=== PATIENT | male | born 1965 ===

== ENCOUNTER 2019-07-27 14:25 | Emergency (ER) | payer SELFPAY ==
[2019-07-27] MEDS ORDERED: LIDOCAINE 1% MPF 5 ML VIAL ONE (15:39)
[2019-07-27] MEDS ORDERED: BUPIVACAINE 0.5% PF 10 ML VIAL ONE (15:39)
[2019-07-27] MEDS ORDERED: TETANUS & DIPHTHERIA TOX,ADULT 0.5 ML VIAL ONE (15:47)
[2019-07-27] MEDS ORDERED: LIDOCAINE 1% MPF 30 ML VIAL ONE (15:52)
--- NOTE | 2019-07-27 16:37 | ER ---
Nurse's Notes [facility] Name: Indra Bauman Age: 53 yrs Sex: Male : 1965 Arrival Date: 07/27/2019 Time: 14:27 Bed 16 Private MD: Diagnosis: Puncture wound with foreign body of left thumb without damage to nail Presentation: 07/26 14:58 Chief complaint: Patient states: Fish hook stuck on the L thumb. Coronavirus screen: ca1 Proceed with normal triage. Patient denies a cough. Patient denies shortness of breath or difficulty breathing. Patient denies measured and/or subjective temperature greater than 100.4F prior to today's visit. Patient denies travel on a cruise ship or to a country the [facility] currently lists as an affected area. Patient denies contact with known and/or suspected case of COVID-19. Ebola Screen: Patient negative for fever greater than or equal to 101.5 degrees Fahrenheit, and additional compatible Ebola Virus Disease symptoms Patient denies exposure to infectious person. Patient denies travel to an Ebola-affected area in the 21 days before illness onset. No symptoms or risks identified at this time. Initial Sepsis Screen: Does the patient meet any 2 criteria? No. Patient's initial sepsis screen is negative. Does the patient have a suspected source of infection? No. Patient's initial sepsis screen is negative. Risk Assessment: Do you want to hurt yourself or someone else? Patient reports no desire to harm self or others. Onset of symptoms was July 27, 2019. 14:58 Method Of Arrival: Ambulatory ca1 14:58 Acuity: MARY ELLEN 4 ca1 Triage Assessment: 18:57 Injury Description: Puncture sustained to left thumb. ll1 18:57 General: Appears uncomfortable, Behavior is calm, cooperative, appropriate for age. ll1 Historical: - Allergies: 15:01 No Known Allergies; ca1 - Home Meds: 15:01 None [Active]; ca1 - PMHx: 15:01 None; ca1 - PSHx: 15:01 None; ca1 - Immunization history:: Adult Immunizations up to date, Last tetanus immunization: < 5 years ago. - Social history:: Smoking status: Patient denies any tobacco usage or history of. Screenin:56 Abuse screen: Denies threats or abuse. Nutritional screening: No deficits noted. ll1 Tuberculosis screening: No symptoms or risk factors identified. Fall Risk None identified. Total Rios Fall Scale indicates No Risk (0-24 pts). Assessment: 15:50 General: Appears uncomfortable, Behavior is calm, cooperative. Pain: Complains of pain ll1 in left thumb Pain currently is 6 out of 10 on a pain scale. Quality of pain is described as aching. Neuro: No deficits noted. Cardiovascular: No deficits noted. Respiratory: No deficits noted. Derm: Fish hook danielito embedded in left thumb Reports foreign body (fish hook) to left thumb, no active bleeding. Musculoskeletal: Reports pain in left thumb. 17:00 Reassessment: No changes from previously documented assessment. Patient and/or family ll1 updated on plan of care and expected duration. Pain level reassessed. Patient is alert, oriented x 3, equal unlabored respirations, skin warm/dry/pink. Vital Signs: 14:58 BP 115 / 97; Pulse 109; Resp 16 S; Temp 97.7(TE); Pulse Ox 97% on R/A; Weight 74.84 kg ca1 (R); Height 5 ft. 11 in. (180.34 cm) (R); Pain 7/10; 14:58 Body Mass Index 23.01 (74.84 kg, 180.34 cm) ca1 ED Course: 14:27 Patient arrived in ED. bp1 14:58 Arm band placed on right wrist. ca1 15:01 Triage completed. ca1 15:18 Paul Stacy PA is PHCP. cp 15:19 Ketan Silva MD is Attending Physician. cp 15:34 Bk Guzman RN is Primary Nurse. ll1 16:21 Left thumb soaking in betadine/saline solution, tolerated well. Fish hook danielito removed ll1 by ROHAN Gtz. 18:56 Patient has correct armband on for positive identification. Bed in low position. Call ll1 light in reach. Side rails up X 1. 19:00 Triple antibiotic applied to left thumb, bandaid applied. Patient did not have IV ll1 access during this emergency room visit. 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 Exp: ll1 04/27/2021. Lot #: [id number]. } Route: IM; Site: right deltoid; 15:56 Drug: Marcaine (0.5 %) 10 ml Volume: 10 ml; Route: Infiltration; ll1 15:57 Drug: Lidocaine (1 %) 10 ml Volume: 20 ml; Route: Infiltration; ll1 16:57 Drug: Doxycycline 100 mg Route: PO; ll1 Outcome: 16:36 Discharge ordered by . cp 16:58 Patient left the ED. ll1 16:58 Discharged to home ambulatory. ll1 16:58 Condition: stable 17:00 Discharge instructions given to patient, Instructed on discharge instructions, follow ll1 up and referral plans. medication usage, wound care, Demonstrated understanding of instructions, follow-up care, medications, wound care, Prescriptions given X 2. Signatures: Paul Stacy PA PA cp Acob, Cheryl, RN RN ca1 Bk Guzman RN RN [address] [facility] Corrections: (The following items were deleted from the chart) 15:02 14:58 Pulse 109bpm; Resp 16bpm; Spontaneous; Pulse Ox 97% RA; Temp 97.7F Temporal; ca1 74.84 kg Reported; Height 5 ft. 11 in. Reported; BMI: 23.0; Pain 7/10; ca1
--- NOTE | 2019-07-27 16:37 | EDPHYS ---
Physician Documentation [facility] Name: Indra Bauman Age: 53 yrs Sex: Male : 1965 Arrival Date: 07/27/2019 Time: 14:27 Bed 16 Private MD: ED Physician Ketan Silva HPI: 07/26 16:23 This 53 yrs old Male presents to ER via Ambulatory with complaints of Hand Injury. cp 16:25 The patient or guardian reports a puncture wound, fish hook. The complaints affect the cp hutchins side distal phalanx left thumb. 16:25 Context: resulted from fishing. Onset: The symptoms/episode began/occurred today. cp Associated signs and symptoms: Pertinent negatives: cyanosis distally, numbness distally. Historical: - Allergies: 15:01 No Known Allergies; ca1 - Home Meds: 15:01 None [Active]; ca1 - PMHx: 15:01 None; ca1 - PSHx: 15:01 None; ca1 - Immunization history:: Adult Immunizations up to date, Last tetanus immunization: < 5 years ago. - Social history:: Smoking status: Patient denies any tobacco usage or history of. ROS: 16:30 Constitutional: Negative for body aches, chills, fever. cp 16:30 Respiratory: Negative for cough, shortness of breath, wheezing. 16:30 Abdomen/GI: Negative for abdominal pain, nausea, vomiting, and diarrhea. 16:30 Skin: Positive for puncture, of the distal phalanx hutchins side left thumb, embedded fish hook. 16:30 Neuro: Negative for numbness. 16:30 All other systems are negative. Exam: 16:31 Constitutional: The patient appears in no acute distress, alert, awake, well developed, cp well nourished. 16:31 Cardiovascular: Rate: tachycardic. 16:31 Respiratory: the patient does not display signs of respiratory distress, Respirations: normal. 16:31 Musculoskeletal/extremity: ROM: full active range of motion, in the left thumb, Perfusion: the extremity is normally perfused throughout, Sensation intact. 16:31 Skin: injury, that can be described as foreign body containing, without bleeding, puncture(s), that are deep, of the hutchins side distal phalanx left thumb, embedded fish hook. Vital Signs: 14:58 BP 115 / 97; Pulse 109; Resp 16 S; Temp 97.7(TE); Pulse Ox 97% on R/A; Weight 74.84 kg ca1 (R); Height 5 ft. 11 in. (180.34 cm) (R); Pain 7/10; 14:58 Body Mass Index 23.01 (74.84 kg, 180.34 cm) ca1 Procedures: 16:35 Foreign Body Removal: a fishhook, from the hutchins side distal phalanx left thumb, by cp using a hemostat, The patient tolerated the removal well, digital block performed with 6 ccs of 50/50 mixture 1% lidocaine w/o epi and 0.5% Marcaine. MDM: 15:31 Patient medically screened. cp 16:00 Differential diagnosis: dislocation, open fracture, contusion. cp 16:33 Data reviewed: vital signs, nurses notes, and as a result, I will discharge patient. cp Counseling: I had a detailed discussion with the patient and/or guardian regarding: the historical points, exam findings, and any diagnostic results supporting the discharge/admit diagnosis, to return to the emergency department if symptoms worsen or persist or if there are any questions or concerns that arise at home. Response to treatment: the patient's symptoms have markedly improved after treatment, and as a result, I will discharge patient. 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 Lot #: [id number]. } Route: IM; Site: right deltoid; 15:56 Drug: Marcaine (0.5 %) 10 ml Volume: 10 ml; Route: Infiltration; ll1 15:57 Drug: Lidocaine (1 %) 10 ml Volume: 20 ml; Route: Infiltration; ll1 16:57 Drug: Doxycycline 100 mg Route: PO; ll1 Disposition: 17:00 Chart complete. cp 18:15 Co-signature as Attending Physician, Ketan Silva MD. ma2 Disposition: 07/27/19 16:36 Discharged to Home. Impression: Puncture wound with foreign body of left thumb without damage to nail. - Condition is Stable. - Discharge Instructions: Puncture Wound. - Prescriptions for Doxycycline Hyclate 100 mg Oral Tablet - take 1 tablet by ORAL route every 12 hours; 20 tablet. - Medication Reconciliation Form, Thank You Letter, Antibiotic Education, Prescription Opioid Use form. - Follow up: Private Physician; When: 1 - 2 days; Reason: Worsening of condition. - Problem is new. - Symptoms have improved. Signatures: Paul Stacy PA PA cp Alzahri, Mohammad, MD MD ma2 Janie Suggs RN RN ca1 Bk Guzman RN RN ll1 Corrections: (The following items were deleted from the chart) 16:58 16:36 07/27/2019 16:36 Discharged to Home. Impression: Puncture wound with foreign body ll1 of left thumb without damage to nail. Condition is Stable. Forms are Medication Reconciliation Form, Thank You Letter, Antibiotic Education, Prescription Opioid Use. Follow up: Private Physician; When: 1 - 2 days; Reason: Worsening of condition. Problem is new. Symptoms have improved. cp
[2019-07-27] MEDS ORDERED: DOXYCYCLINE 100 MG CAP PO ONE (16:57)
[2019-07-27 17:08] VITALS: BP 115/97; TEMP 97.7; O2SAT 97
== END 2019-07-27 16:58 | disposition home or self-care (01) ==
LOC: ER 14:25
DX: S61.042A Puncture wound with foreign body of left thumb without damage to nail, initial encounter (principal); Z23 Encounter for immunization
CPT/HCPCS: 90471; 90714; 99283